=== PATIENT | female | born 1975 | race Hispanic/Latino ===

== ENCOUNTER 2023-12-09 17:08 | Emergency (ER) | payer OTHER ==
[~2023-12-09] VITALS: Ht 154.9 cm; Wt 81.0 kg
[~2023-12-09 17:08] MED LIST: EXCEDRIN MIGRA1 EAC2 PO; IMITREX50 MG PO; ONDANSETRON HCL4 MG PO; TYLENOL EXTRA500 MG PO
[2023-12-09] MEDS ORDERED: SYNTHROID25 MCG PO (17:57)
[2023-12-09] MEDS ORDERED: diphenhydrAMINE HCL 50 MG/ML VIAL IV ONE (18:15)
[2023-12-09] MEDS ORDERED: PROCHLORPERAZINE EDISYLATE 10 MG/2 ML VIAL IV ONE (18:15)
[2023-12-09] MEDS ORDERED: SODIUM CHLORIDE 0.9% 1,000 ML IV ONE (18:15)
[2023-12-09] MEDS ORDERED: KETOROLAC TROMETHAMINE 15 MG/ML VIAL IV ONE (18:15)
[2023-12-09 19:39] VITALS: BP 108/72
== END 2023-12-09 20:30 | disposition home or self-care (01) ==
LOC: ED 17:08
DX: G43.909 Migraine, unspecified, not intractable, without status migrainosus (principal); E03.9 Hypothyroidism, unspecified; Z79.899 Other long term (current) drug therapy; Z79.890 Hormone replacement therapy
CPT/HCPCS: J0780; J1200; J1885; J7030

== ENCOUNTER 2025-04-03 19:44 | Emergency (ER) | payer OTHER ==
[~2025-04-03] VITALS: Ht 154.9 cm; Wt 76.2 kg
[~2025-04-03 19:44] MED LIST changes: +SYNTHROID25 MCG PO
[2025-04-03] MEDS ORDERED: DIPHTH,PERTUSS(ACELL),TET VAC 0.5 ML SYRINGE IM ONE (22:45)
[2025-04-03 22:51] VITALS: BP 118/65
== END 2025-04-03 22:45 | disposition home or self-care (01) ==
LOC: ED 19:44
DX: S01.112A Laceration without foreign body of left eyelid and periocular area, initial encounter (principal); E03.9 Hypothyroidism, unspecified; W22.8XXA Striking against or struck by other objects, initial encounter; Z79.890 Hormone replacement therapy; Z79.82 Long term (current) use of aspirin
CPT/HCPCS: 12011; 90471; 90715; 99282-25